=== PATIENT | female | born 1970 | race Caucasian/White ===

== ENCOUNTER → 2020-09-24 | Outpatient (CLI) | payer OTHER ==
[~2020-09-24] MED LIST: LOPRESSOR 25 MG25 MG PO; PROVENTIL HFA6.7 GM INH; TESSALON PERLE100 MG PO
== END ==
LOC: ECHO 13:00
DX: R60.9 Edema, unspecified (principal); I07.1 Rheumatic tricuspid insufficiency
CPT/HCPCS: ECHO; 93306